=== PATIENT | male | born 1985 | race Caucasian/White ===

== ENCOUNTER 2017-11-09 12:20 | Emergency (ER) | payer OTHER | END 2017-11-09 14:35 | disposition home or self-care (01) | LOC: M ED 12:20 | DX: S93.402A Sprain of unspecified ligament of left ankle, initial encounter (principal); X50.1XXA Overexertion from prolonged static or awkward postures, initial encounter; Y92.89 Other specified places as the place of occurrence of the external cause; M54.9 Dorsalgia, unspecified; F17.210 Nicotine dependence, cigarettes, uncomplicated; Z88.2 Allergy status to sulfonamides; Z87.81 Personal history of (healed) traumatic fracture | CPT/HCPCS: 73610 ==

== ENCOUNTER → 2019-11-26 | Outpatient (REF) | payer OTHER ==
[~2019-11-26] MED LIST: FOLI1TAB86 PO; KEPP1TAB2 PO; PERC5TAB PO; ROXI1TAB2 PO; THIA100T PO; TYLE325T5 PO; VITA100T2 PO
== END ==
LOC: M WUC 08:28
PROVIDERS: ATTEND Physician Assistant
DX: J02.9 Acute pharyngitis, unspecified (principal)

== ENCOUNTER → 2020-07-09 | Outpatient (CLI) | payer OTHER ==
--- NOTE | 2020-07-10 06:13 | REP ---
INDICATION: PAIN COMPARISON: None. TECHNIQUE: Internal rotation, external rotation, and Y view. FINDINGS: Cortical irregularity and subtle spurring along with 6 mm calcification involving the distal clavicle/acromioclavicular joint. The subacromial space is normal. The glenohumeral joint is normal. IMPRESSION: Arthritic changes at the acromioclavicular joint. <Electronically signed by Clyde Kumar > 07/10/20 [id number]
== END ==
LOC: M WUC 12:06
PROVIDERS: ATTEND Physician Assistant
DX: M25.511 Pain in right shoulder (principal)

== ENCOUNTER 2023-09-17 08:29 | Emergency (ER) | payer OTHER ==
[~2023-09-17] VITALS: Ht 180.3 cm; Wt 113.6 kg
[~2023-09-17 08:29] MED LIST changes: +ENOX120I3; +GABA-1171; +METH-1164; +OXYC1TAB23
[2023-09-17] MEDS: NS 1,000 ML IV SCH (08:59)
[2023-09-17] MEDS: MORPHINE 4 MG/ML 1ML VIAL IV ONE (08:59)
[2023-09-17] MEDS: propofoL 200 MG/20 ML VIAL IV.PROC PRN (09:36)
[2023-09-17 13:42] VITALS: BP 140/84; O2SAT 100
[2023-09-17] MEDS ORDERED: HYDR-3713 PO (14:14)
[2023-09-17 14:34] VITALS: TEMP 96.7
== END 2023-09-17 14:38 | disposition home or self-care (01) ==
LOC: EDBD 08:29 → M ED 08:29
DX: S82.452A Displaced comminuted fracture of shaft of left fibula, initial encounter for closed fracture (principal); S93.05XA Dislocation of left ankle joint, initial encounter; W20.8XXA Other cause of strike by thrown, projected or falling object, initial encounter; M51.26 Other intervertebral disc displacement, lumbar region; M51.27 Other intervertebral disc displacement, lumbosacral region; M17.12 Unilateral primary osteoarthritis, left knee; M25.462 Effusion, left knee; M50.322 Other cervical disc degeneration at C5-C6 level; M48.02 Spinal stenosis, cervical region; F17.200 Nicotine dependence, unspecified, uncomplicated; F10.10 Alcohol abuse, uncomplicated; Y92.009 Unspecified place in unspecified non-institutional (private) residence as the place of occurrence of the external cause; Y93.89 Activity, other specified; Y99.9 Unspecified external cause status; Z88.2 Allergy status to sulfonamides; Z79.1 Long term (current) use of non-steroidal anti-inflammatories (NSAID)

== ENCOUNTER 2023-09-21 15:19 | Day surgery (SDC) | payer OTHER ==
[~2023-09-21] VITALS: Ht 180.3 cm; Wt 115.2 kg
[2023-09-21] MEDS: TRANEXAMIC ACID 100 MG/ML 10ML VIAL As Ordered ONE (15:06)
[~2023-09-21 15:19] MED LIST changes: +HYDR-3713 PO
[2023-09-21] MEDS ORDERED: VANCOMYCIN 1000MG/20ML VIAL As Ordered ONE (15:24)
[2023-09-21] MEDS ORDERED: LR 1,000 ML IV SCH ×2 (15:45→17:40)
[2023-09-21] MEDS ORDERED: OXYC-1 PO (15:57)
[2023-09-21] MEDS ORDERED: ASPI325T57 PO (15:59)
[2023-09-21] MEDS ORDERED: ACET325C5 PO (16:01)
[2023-09-21] MEDS ORDERED: CELE1CAP4 PO (16:02)
[2023-09-21] MEDS ORDERED: COLA100C5 PO (16:03)
[2023-09-21] MEDS: fentaNYL 100 MCG/2 ML INJECTION IV PRN (16:15)
[2023-09-21] MEDS: MIDAZOLAM INJ 2MG/2ML VIAL IV PRN (16:15)
[2023-09-21] MEDS: EPINEPHrine INJ 1 MG/ML 1ML AMP PN ONE (16:26)
[2023-09-21] MEDS: ROPIvacaine 0.5% 30ML VIAL PN ONE (16:26)
[2023-09-21] MEDS: dexAMETHasone 10MG/1ML VIAL PRES.FREE PN ONE (16:26)
[2023-09-21] MEDS: LIDOCAINE 1% SDV 5ML VIAL PN ONE (16:26)
[2023-09-21] MEDS: ceFAZolin 2 GM/D5W 50 ML IV BAG As Ordered ONE (17:06)
[2023-09-21] MEDS ORDERED: fentaNYL 100 MCG/2 ML INJECTION IV PRN (17:40)
[2023-09-21] MEDS ORDERED: ONDANSETRON 4MG 2ML VIAL IV PRN (17:40)
[2023-09-21] MEDS ORDERED: oxyCODONE 5MG TAB PO PRN (17:40)
[2023-09-21] MEDS ORDERED: HYDROMORPHONE HCL 0.5 MG/ 0.5 ML SYRINGE IV PRN (17:40)
[2023-09-21] MEDS ORDERED: KETOROLAC 60MG 2ML VIAL As Ordered ONE (17:47)
[2023-09-21 18:25] VITALS: BP 141/91; TEMP 97.9; O2SAT 97
[2023-10-03] MEDS ORDERED: fentaNYL 100 MCG/2 ML INJECTION As Ordered ONE (15:05)
[2023-10-03] MEDS ORDERED: MIDAZOLAM INJ 2MG/2ML VIAL As Ordered ONE (15:05)
== END 2023-09-21 18:45 | disposition home or self-care (01) ==
LOC: M SDC 15:19
PROVIDERS: ATTEND Orthopaedic Surgery
DX: S82.862A Displaced Maisonneuve's fracture of left leg, initial encounter for closed fracture (principal); S93.05XA Dislocation of left ankle joint, initial encounter; W20.8XXA Other cause of strike by thrown, projected or falling object, initial encounter; Y92.009 Unspecified place in unspecified non-institutional (private) residence as the place of occurrence of the external cause; Y93.89 Activity, other specified; Y99.9 Unspecified external cause status; F17.218 Nicotine dependence, cigarettes, with other nicotine-induced disorders; Z88.2 Allergy status to sulfonamides; E66.9 Obesity, unspecified
CPT/HCPCS: 27829; 64445; 76000; C1713; J0171; J0665; J0690; J1100; J1885; J2250; J2795; J3010; J3370

== ENCOUNTER → 2023-10-03 | Outpatient (CLI) | payer OTHER ==
[~2023-10-03] MED LIST changes: +ACET325C5 PO; +ASPI325T57 PO; +CELE1CAP4 PO; +COLA100C5 PO; +OXYC-1 PO
== END ==
LOC: M SOG 14:21
PROVIDERS: ATTEND Physician Assistant
DX: M19.072 Primary osteoarthritis, left ankle and foot (principal)

== ENCOUNTER → 2023-11-01 | Outpatient (CLI) | payer OTHER | LOC: M PLAIMG 08:12 | PROVIDERS: ATTEND Orthopaedic Surgery | DX: S82.862A Displaced Maisonneuve's fracture of left leg, initial encounter for closed fracture (principal); Y93.9 Activity, unspecified; Y92.9 Unspecified place or not applicable ==

== ENCOUNTER → 2023-11-29 | Outpatient (CLI) | payer OTHER ==
[~2023-11-29] MED LIST changes: +ONDA-282 PO; +OXYC-517 PO
== END ==
LOC: M SOG 07:57
PROVIDERS: ATTEND Orthopaedic Surgery
DX: S82.862D Displaced Maisonneuve's fracture of left leg, subsequent encounter for closed fracture with routine healing (principal); M25.572 Pain in left ankle and joints of left foot

== ENCOUNTER 2023-12-06 14:29 | Day surgery (SDC) | payer OTHER ==
[~2023-12-06] VITALS: Ht 180.3 cm; Wt 110.2 kg
[2023-12-06] MEDS ORDERED: LR 1,000 ML IV SCH (15:10)
[2023-12-06] MEDS ORDERED: propofoL 200 MG/20 ML VIAL As Ordered ONE (16:17)
[2023-12-06] MEDS ORDERED: LIDOCAINE 2% 100MG/5ML SDV (FOR ANES.) As Ordered ONE (16:17)
[2023-12-06] MEDS ORDERED: MIDAZOLAM INJ 2MG/2ML VIAL As Ordered ONE (16:17)
[2023-12-06] MEDS ORDERED: fentaNYL 100 MCG/2 ML INJECTION As Ordered ONE (16:17)
[2023-12-06] MEDS: ceFAZolin 2 GM/D5W 50 ML IV BAG As Ordered ONE (16:39)
[2023-12-06] MEDS ORDERED: ONDANSETRON 4MG 2ML VIAL As Ordered ONE (16:40)
[2023-12-06] MEDS: TRANEXAMIC ACID 100 MG/ML 10ML VIAL As Ordered ONE (16:44)
[2023-12-06] MEDS ORDERED: HYDROmorphone HCL 2MG/ML 1ML VIAL As Ordered ONE (16:45)
[2023-12-06] MEDS ORDERED: ACETAMINOPHEN 1000MG 100ML IV BAG As Ordered ONE (16:52)
[2023-12-06] MEDS ORDERED: PHENYLephrine 500MCG 5ML (100MCG/ML) SYRINGE As Ordered ONE (16:58)
[2023-12-06] MEDS ORDERED: KETOROLAC 60MG 2ML VIAL As Ordered ONE (18:24)
[2023-12-06] MEDS ORDERED: fentaNYL 100 MCG/2 ML INJECTION IV PRN (18:40)
[2023-12-06] MEDS ORDERED: HYDROMORPHONE HCL 0.5 MG/ 0.5 ML SYRINGE IV PRN (19:05)
[2023-12-06] MEDS: oxyCODONE 5MG TAB PO PRN (19:40)
[2023-12-06] MEDS: ONDANSETRON 4MG 2ML VIAL IV PRN (19:40)
[2023-12-06 20:11] VITALS: BP 152/86; TEMP 97.9; O2SAT 95
== END 2023-12-06 20:21 | disposition home or self-care (01) ==
LOC: M SDC 14:29
PROVIDERS: ATTEND Orthopaedic Surgery
DX: T84.84XA Pain due to internal orthopedic prosthetic devices, implants and grafts, initial encounter (principal); S82.862D Displaced Maisonneuve's fracture of left leg, subsequent encounter for closed fracture with routine healing; M25.572 Pain in left ankle and joints of left foot; F12.10 Cannabis abuse, uncomplicated; F17.218 Nicotine dependence, cigarettes, with other nicotine-induced disorders; Z88.2 Allergy status to sulfonamides; Z79.82 Long term (current) use of aspirin; Z79.899 Other long term (current) drug therapy
CPT/HCPCS: 27698; 27829; 76000; C1713; J0131; J0665; J0690; J1100; J1170; J1885; J2250; J2371; J2405; J3010

== ENCOUNTER → 2023-12-13 | Outpatient (CLI) | payer OTHER | LOC: M SOG 08:28 | PROVIDERS: ATTEND Orthopaedic Surgery | DX: S82.862D Displaced Maisonneuve's fracture of left leg, subsequent encounter for closed fracture with routine healing (principal); Y93.9 Activity, unspecified; Y92.9 Unspecified place or not applicable ==

== ENCOUNTER → 2024-01-11 | Outpatient (CLI) | payer OTHER | LOC: M SOG 07:21 | PROVIDERS: ATTEND Physician Assistant | DX: S82.862D Displaced Maisonneuve's fracture of left leg, subsequent encounter for closed fracture with routine healing (principal); Z53.9 Procedure and treatment not carried out, unspecified reason ==

== ENCOUNTER → 2024-01-16 | Outpatient (CLI) | payer OTHER | LOC: M SOG 07:22 | PROVIDERS: ATTEND Physician Assistant | DX: S82.862D Displaced Maisonneuve's fracture of left leg, subsequent encounter for closed fracture with routine healing (principal); Z53.9 Procedure and treatment not carried out, unspecified reason ==

== ENCOUNTER → 2024-02-01 | Outpatient (CLI) | payer OTHER | LOC: M SOG 07:57 | PROVIDERS: ATTEND Physician Assistant | DX: Z53.9 Procedure and treatment not carried out, unspecified reason (principal); S82.862D Displaced Maisonneuve's fracture of left leg, subsequent encounter for closed fracture with routine healing ==

== ENCOUNTER → 2024-02-15 | Outpatient (CLI) | payer OTHER | LOC: M SOG 07:50 | PROVIDERS: ATTEND Physician Assistant | DX: S82.862D Displaced Maisonneuve's fracture of left leg, subsequent encounter for closed fracture with routine healing (principal); Y93.9 Activity, unspecified; Y92.9 Unspecified place or not applicable ==

== ENCOUNTER → 2024-07-03 | Outpatient (CLI) | payer MEDICAID | LOC: M SOG 07:51 | PROVIDERS: ATTEND Physician Assistant | DX: S82.862D Displaced Maisonneuve's fracture of left leg, subsequent encounter for closed fracture with routine healing (principal) ==